=== PATIENT | female | born 1960 | race Two or more races ===

== ENCOUNTER 2024-12-01 07:20 | Outpatient (CLI) | payer OTHER | END 2024-12-01 07:23 | disposition home or self-care (01) | LOC: TOM 07:20 | PROVIDERS: ATTEND Colon & Rectal Surgery | DX: R10.2 Pelvic and perineal pain (principal) | CPT/HCPCS: 72194; Q9965 ==

== ENCOUNTER 2024-12-20 09:00 | Day surgery (SDC) | payer OTHER ==
[2024-12-20] MEDS ORDERED: ONDANSETRON HCL 2 MG/ML VIAL IV ONE (15:15)
[2024-12-20] MEDS ORDERED: DIPHENHYDRAMINE HCL 50 MG/ML VIAL 1ML IV ONE (15:15)
[2024-12-20] MEDS ORDERED: fentaNYL CITRATE 50 MCG/ML AMPUL IV PUSH ONE (15:15)
[2024-12-20] MEDS ORDERED: MIDAZOLAM HCL 2 MG/2 ML VIAL IV ONE (15:15)
== END 2024-12-20 15:55 | disposition home or self-care (01) ==
LOC: AMB-ENDOS 09:00
PROVIDERS: ATTEND Colon & Rectal Surgery
DX: K62.5 Hemorrhage of anus and rectum (principal); K57.30 Diverticulosis of large intestine without perforation or abscess without bleeding